=== PATIENT | male | born 1950 | race Caucasian/White ===

== ENCOUNTER 2022-04-04 07:04 | Outpatient (CLI) | payer MEDICARE, SELFPAY ==
[2022-04-04 08:14] LABS: Basophils Absolute Auto 0.05 K/mm3 (0.00-0.10); Basophils Percent Auto 0.6 % (0.0-1.0); Eosinophils Absolute Auto 0.31 K/mm3 (0.02-0.50); Eosinophils Percent Auto 3.5 % (1.0-6.0); Hematocrit 44.1 % (37.0-46.0); Hemoglobin 13.8 g/dL (12.4-15.3); Immature Granulocyte Absolute 0.03 K/mm3 (0.00-0.00); Immature Granulocyte Percent A 0.3 % (0.0-0.0); Lymphocytes Absolute Auto 2.17 K/mm3 (1.10-4.50); Lymphocytes Percent Auto 24.7 % (18.0-42.0); Mean Corpuscular HGB Conc 31.3 g/dL (32.0-36.0); Mean Corpuscular Hemoglobin 28.8 pg (27.0-31.0); Mean Corpuscular Volume 91.9 fL (78.0-102.0); Mean Platelet Volume 9.8 fl (8.7-11.0); Monocytes Absolute Auto 0.68 K/mm3 (0.10-0.90); Monocytes Percent Auto 7.7 % (2.0-11.0); Neutrophils Absolute Auto 5.6 K/mm3 (1.7-7.2); Neutrophils Percent Auto 63.2 % (50.0-70.0); Platelet Count Result 284 K/mm3 (150-420); White Blood Count 8.8 K/mm3 (4.8-10.8)
[2022-04-04 08:20] LABS: Hemoglobin A1C 9.7 % (<5.7)
[2022-04-04 08:24] LABS: Add Urine Microscopic? YES; Appearance Urine Clear (Clear); Bilirubin Urine Negative (Negative); Blood Urine Negative (Negative); Color Urine Light Yellow (Yellow); Glucose Urine UA 2+ (Negative); Ketones Urine Negative (Negative); Leukocyte Esterase Ur Negative (Negative); Nitrate Urine Negative (Negative); Protein Urine Negative (Negative); Urobilinogen Urine 0.2 mg/dL (0.2-1.0); pH Urine 5.5 (5.0-8.0)
[2022-04-04 08:28] LABS: RBC Urine None seen /hpf (0-2); WBC Urine None seen /hpf (0-3)
[2022-04-04 08:29] LABS: Bacteria Urine None seen /hpf
[2022-04-04 08:33] LABS: Creatinine Urine 55.31 mg/dL (40-278); MALB Creatinine Ratio 65.4 mg/g (0-30); Microalbumin Urine Random 36.2 mg/L
[2022-04-04 08:52] LABS: Alanine Aminotransferase 22 U/L (16-63); Albumin Level 3.6 g/dL (3.4-5.0); Alkaline Phosphatase 69 U/L (46-116); Anion Gap 9 mmol/L (8-16); Aspartate Amino Transferase 13 U/L (15-37); Bilirubin,Total 0.4 mg/dL (0.00-1.00); Blood Urea Nitrogen 23 mg/dL (7-18); Calcium 9.6 mg/dL (8.5-10.1); Carbon Dioxide 27 mmol/L (21-32); Chloride 101 mmol/L (98-108); Cholesterol 170 mg/dL (0-200); Estimated Glomerular Filt Rate 59; Glucose 210 mg/dL (70-99); HDL Direct 42 mg/dL (40-60); LDL Cholesterol Calculated 97 mg/dL (<130); NT Pro B Type Natriuretic Pept 115 pg/mL (0-125); Osmolality Calculated 293 mOsm/kg (285-295); Potassium 4.9 mmol/L (3.5-5.1); Sodium 137 mmol/L (136-145); Thyroid Stimulating Hormone 4.71 uIU/mL (0.36-3.74); Total Protein 7.9 g/dL (6.4-8.2); Triglycerides 154 mg/dL (0-150)
== END 2022-04-04 07:05 | disposition home or self-care (01) ==
LOC: CHSLAB 07:07
PROVIDERS: PCP Internal Medicine; Visit Provider Internal Medicine
DX: I10 Essential (primary) hypertension (principal); M79.89 Other specified soft tissue disorders; E11.9 Type 2 diabetes mellitus without complications; I50.9 Heart failure, unspecified
CPT/HCPCS: 36415; 80053; 80061; 81001; 82043; 83036; 83880; 84443; 85025

== ENCOUNTER 2022-05-30 22:29 | Emergency (ER) | payer MEDICARE, SELFPAY ==
[2022-05-30] VITALS (11 sets, daily range): BP systolic 143–166; BP diastolic 75–107; PULSE 85–99; RESP 18–20; TEMP 36.9; O2SAT 94–100
--- NOTE | ~2022-05-30 | XR_ITS ---
EXAMINATION: XR chest 1V portable INDICATION: Chest pain shortness of breath TECHNIQUE: Portable AP chest at 1121 hours COMPARISON: None available FINDINGS: Cardiomegaly is noted. There is a mild diffuse interstitial pattern. Small pleural effusion s are suggested. There is no pneumothorax. 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 IMPRESSION: 1. Cardiomegaly with probable mild pulmonary edema. 2. Small pleural effusions. Reviewed, dictated and finalized at location L.
--- NOTE | 2022-05-30 22:39 | ECG_ITS ---
Measurements Intervals [place] Rate: 97 P: 42 GA: 198 QRS: -51 QRSD: 104 T: 60 QT: 349 QTc: 445 Interpretive Statements SINUS RHYTHM PATTERN CONSISTENT WITH PULMONARY DISEASE LEFT ANTERIOR FASCICULAR BLOCK [QRS AXIS <= -45, QR IN I, RS IN II] ABNORMAL ECG NO PREVIOUS ECG AVAILABLE FOR COMPARISON Electronically Signed On 06-01-2022 13:57:04 CDT by Sebastian Ramires M.D.
[2022-05-30 23:11] LABS: Basophils Absolute Auto 0.05 K/mm3 (0.00-0.10); Basophils Percent Auto 0.5 % (0.0-1.0); Eosinophils Absolute Auto 0.27 K/mm3 (0.02-0.50); Eosinophils Percent Auto 2.8 % (1.0-6.0); Immature Granulocyte Absolute 0.03 K/mm3 (0.00-0.00); Immature Granulocyte Percent A 0.3 % (0.0-0.0); Lymphocytes Percent Auto 21.9 % (18.0-42.0); Mean Corpuscular HGB Conc 33.3 g/dL (32.0-36.0); Mean Corpuscular Hemoglobin 29.9 pg (27.0-31.0); Mean Corpuscular Volume 89.7 fL (78.0-102.0); Mean Platelet Volume 9.1 fl (8.7-11.0); Monocytes Absolute Auto 0.77 K/mm3 (0.10-0.90); Neutrophils Absolute Auto 6.4 K/mm3 (1.7-7.2); Neutrophils Percent Auto 66.5 % (50.0-70.0); Platelet Count Result 197 K/mm3 (150-420); Red Blood Count 4.35 M/mm3 (4.70-6.10); Red Cell Distribution Width 14.5 % (11.6-14.4); White Blood Count 9.6 K/mm3 (4.8-10.8)
[2022-05-30 23:24] LABS: Prothrombin Time 11.3 Seconds (9.50-12.10)
[2022-05-30 23:33] LABS: Alanine Aminotransferase 19 U/L (16-63); Albumin Level 3.3 g/dL (3.4-5.0); Alkaline Phosphatase 72 U/L (46-116); Anion Gap 8 mmol/L (8-16); Aspartate Amino Transferase 12 U/L (15-37); Bilirubin,Total 0.6 mg/dL (0.00-1.00); Blood Urea Nitrogen 16 mg/dL (7-18); Calcium 8.8 mg/dL (8.5-10.1); Carbon Dioxide 30 mmol/L (21-32); Chloride 102 mmol/L (98-108); Estimated CRCL calculation 77 ml/min; Estimated Glomerular Filt Rate > 60; Glucose 231 mg/dL (70-99); NT Pro B Type Natriuretic Pept 80 pg/mL (0-125); Osmolality Calculated 298 mOsm/kg (285-295); Potassium 3.8 mmol/L (3.5-5.1); Sodium 140 mmol/L (136-145); Total Protein 7.4 g/dL (6.4-8.2); Troponin I 9.1 ng/L (0.00-60.4)
--- NOTE | 2022-05-30 23:57 | ED.GENADULT ---
HPI - General Adult General Chief complaint: Shortness of Breath/Dyspnea Stated complaint: SOB History of Present Illness HPI narrative: Augustine is a 72M with a PMH of high blood pressure, HLD, and DMII that presented to the ED after and episode of chest pressure and dyspnea. It started after a disagreement with friends/family about smoking in the home. After this he had mild chest pressure and dyspnea that lasted for 30 minutes. By the time he arrived at the ED he was asymptomatic. There was no lightheadedness/syncope, nausea or vomiting. Related Data Home Medications Medication Instructions Recorded Confirmed amlodipine 10 mg tablet 10 mg PO DAILY 05/30/22 06/07/22 atorvastatin 40 mg tablet 40 mg PO DAILY 05/30/22 06/07/22 glimepiride 4 mg tablet 4 mg PO BID 05/30/22 06/07/22 lisinopril 20 mg tablet 20 mg PO DAILY 05/30/22 06/07/22 metformin 1,000 mg tablet 1,000 mg PO BID 05/30/22 06/07/22 metoprolol tartrate 50 mg tablet 50 mg PO BID 05/30/22 06/07/22 spironolactone 25 mg tablet 25 mg PO DAILY 05/30/22 06/07/22 torsemide 20 mg tablet 40 mg PO DAILY 05/30/22 06/07/22 Allergies Allergy/AdvReac Type Severity Reaction Status Date / Time No Known Allergies Allergy Verified 05/30/22 22:58 Review of Systems Review of Systems: All systems reviewed & are unremarkable except as noted in HPI and below PMFSH Past Medical History Medical History Diabetes mellitus Dyslipidemia Hypertension Leg swelling Nonischemic cardiomyopathy Family History Family History Other Congestive heart failure Diabetes mellitus Social History Social History Social History: nonsmoker Smoking status: Never smoker Second hand tobacco smoke exposure: No Alcohol intake: former Alcohol use details: remote history of alcohol use Substance use: never Substance use type: does not use Lack of Transportation: No Lack of Food: Never True Current Housing: I Have Housing Concerned About Future Housing: No Difficulty Paying Gas/Electric Bills: No Difficulty Paying for Meds: No Currently Unemployed: No Education: Trade/Vocational Certificate Difficulty w/ Childcare or Family Care: No Spiritual care concerns: No Exam Const: General: healthy appearing and no acute distress Nutritional Appearance: well nourished Orientation/consciousness: patient oriented x3 HENMT: Head: normal to inspection Ears: external ears normal Face/Nose/Sinus: Normal external nose present Eyes: Conjunctivae: conjunctivae normal Pupils: Equal, round and reactive pupils present Neck: Neck: normal visual inspection Chest: Chest palpation & inspection: normal inspection of the chest Resp: Effort & Inspection: normal respiratory effort Auscultation: clear to auscultation bilaterally Cardio: Rate: regular rate Rhythm: regular rhythm GI: Inspection: non-distended GI Palp: Yes Soft to palpation and No Tenderness to palpation present (GI) Skin: General skin exam: normal color Rashes: no rashes Neuro: General: patient oriented x3 and moves all extremities Extrem: General: normal to inspection Psych: Mental Status: mental status grossly normal Course Course Emergency Course: Orderd labs and CXR as well ad EKG EKG showed sinus rhythm with a rate of [address] elevation or depression or ectopy Labs showed no leucocytosis or anemia. Troponin and BNP wnl as well as other chemistries CXR: No cause for chest pain Vital Signs Vital signs: Vital Signs Pulse Rate 97 05/30/22 22:30 Pulse Oximetry 95 05/30/22 22:30 Oxygen Delivery Room Air 05/30/22 22:30 Temperature 98.1 F 05/31/22 00:03 Pulse Rate 80 05/31/22 00:03 Respiratory Rate 20 05/31/22 00:03 Blood Pressure 132/76 05/31/22 00:03 Pulse Oximetry 96 05/31/22 0
[2022-05-31 00:03] VITALS: BP 132/76; PULSE 80; RESP 20; TEMP 36.7; O2SAT 96
== END 2022-05-31 00:15 | disposition home or self-care (01) ==
PROVIDERS: Emergency Provider Family Medicine; PCP Internal Medicine
DX: R07.9 Chest pain, unspecified (principal); E11.9 Type 2 diabetes mellitus without complications; E78.5 Hyperlipidemia, unspecified; I10 Essential (primary) hypertension; Z79.84 Long term (current) use of oral hypoglycemic drugs
CPT/HCPCS: 36415; 71045; 80053; 83880; 84484; 85025; 85610; 93005; 99284

== ENCOUNTER 2022-06-07 21:36 | Observation (INO) | payer MEDICARE, MEDICAID, SELFPAY ==
--- NOTE | ~2022-06-07 | XR_ITS ---
EXAMINATION: XR chest 1V portable Exam Date/Time: 06/07/2022 22:28 CDT HISTORY: PRODUCTIVE COUGH WITH FATIGUE TODAY. Comparison: 05/30/2022. RESULT: Lines, tubes, and devices: None. Lungs and pleura: Diffuse reticular opacities. Streaky mid and lower lung opacities. No focal consol idation. Senescent change. Minimal bilateral costophrenic angle blunting. Cardiomediastinal silhouette: Stable. Other: No acute osseous or upper abdominal finding. IMPRESSION: Interstitial pulmonary edema. Bibasilar scar and atelectasis. Possible small bilateral effusions. Reviewed, dictated and finalized at location K. IMPRESSION: Interstitial pulmonary edema. Bibasilar scar and atelectasis. Possible small bi lateral effusions.
[2022-06-07 21:45] VITALS: BP 160/80; PULSE 84; RESP 24; O2SAT 94
--- NOTE | 2022-06-07 21:46 | ED.SOB ---
HPI - SOB/Dyspnea General Chief Complaint: Shortness of Breath/Dyspnea Stated Complaint: amb Time Seen by Provider: 06/07/22 21:43 Source: patient Mode of arrival: wheelchair Limitations: no limitations History of Present Illness HPI Narrative: 72-year-old male ex alcoholic quit many years ago), nonischemic cardiomyopathy with a negative cardiac catheterization 10 years ago, diabetes mellitus, dyslipidemia, hypertension, CHF presents to the ER with -- cough with increased mucoid sputum. -- Chronic shortness of breath without any worsening. patient was noted to be 88% on room air following which he was placed on 1 L of O2. -- Chronic bilateral leg swelling -- chronic gluteal decubitus patient denied any fever or chills no chest pain. no pleuritic pain MD elicited complaint: shortness of breath and cough Pertinent past history: congestive heart failure and diabetes Onset (ago): day(s) Context: occurred during exertion Timing: constant Severity: mild Exacerbating factors: lying flat, exertion and movement Relieving factors: nothing Known history of: congestive heart failure Associated symptoms: cough and sputum production Treatment prior to arrival: oxygen Related Data Home oxygen amount: none Home Medications Medication Instructions Recorded Confirmed amlodipine 10 mg tablet 10 mg PO DAILY 05/30/22 06/07/22 atorvastatin 40 mg tablet 40 mg PO DAILY 05/30/22 06/07/22 glimepiride 4 mg tablet 4 mg PO BID 05/30/22 06/07/22 lisinopril 20 mg tablet 20 mg PO DAILY 05/30/22 06/07/22 metformin 1,000 mg tablet 1,000 mg PO BID 05/30/22 06/07/22 metoprolol tartrate 50 mg tablet 50 mg PO BID 05/30/22 06/07/22 spironolactone 25 mg tablet 25 mg PO DAILY 05/30/22 06/07/22 torsemide 20 mg tablet 40 mg PO DAILY 05/30/22 06/07/22 Allergies Allergy/AdvReac Type Severity Reaction Status Date / Time No Known Allergies Allergy Verified 05/30/22 22:58 Review of Systems Review of Systems: All systems reviewed & are unremarkable except as noted in HPI and below Constitutional: Constitutional: Reports as per HPI and Reports no additional constitutional complaints Eyes: Eyes: Reports as per HPI and Reports no additional eye complaints ENT: Reports system reviewed and no additional complaints, except as documented, Reports as per HPI and Reports nasal congestion Cardiovascular: Cardiovascular: Reports as per HPI and Reports no additional cardiovascular complaints Respiratory: Respiratory: Reports as per HPI, Reports no additional respiratory complaints, Reports chest congestion, Reports cough and Reports dyspnea Gastrointestinal: Gastrointestinal: Reports as per HPI and Reports no additional gastrointestinal complaints Genitourinary: Genitourinary: Reports no additional male genitourinary complaints and Reports as per HPI Musculoskeletal: Musculoskeletal: Reports no additional musculoskeletal complaints and Reports as per HPI Integumentary/Breasts: Skin/Breast: Reports system reviewed and no additional complaints, except as docu and Reports as per HPI Comments: Bilateral gluteal decubitus Neurologic: Reports system reviewed and no additional complaints, except as documented and Reports as per HPI Psychiatric: Psychiatric: Reports no additional psychiatric complaints and Reports as per HPI Endocrine: Endocrine: Reports no additional endocrine complaints and Reports as per HPI Hematologic/Lymphatic: Hematologic/Lymphatic: Reports no additional hematologic/lymphatic complaints and Reports as per HPI Allergic/Immunologic: Allergic/Immunologic: Reports no additional allergic/immunologic complaints and Reports as per HPI FOR[facility]LY [facility], [facility] Past Medical History Medical History (Updated 06/08/22 @ 00:17 by Marquez Terry MD) Diabetes mellitus Dyslipidemia Hypertension Leg swelling Nonischemic cardiomyopathy Social History Social History (Updated 06/07/22 @ 22:27 by Marquez Terry MD) Social History: nonsmoker Alcohol use detail
[2022-06-07 21:49] VITALS: TEMP 36.9
[2022-06-07 21:51] VITALS: O2SAT 88
--- NOTE | 2022-06-07 22:11 | ECG_ITS ---
Measurements Intervals [place] Rate: 79 P: 44 AK: 221 QRS: -36 QRSD: 97 T: 25 QT: 381 QTc: 438 Interpretive Statements SINUS RHYTHM WITH FIRST DEGREE AV BLOCK BASELINE ARTIFACT LEFT AXIS DEVIATION PATTERN CONSISTENT WITH PULMONARY DISEASE BORDERLINE ECG COMPARED TO ECG 05/30/2022 22:47:38 FIRST DEGREE AV BLOCK NOW PRESENT LEFT-AXIS DEVIATION NOW PRESENT Electronically Signed On 06-08-2022 18:19:38 CDT by Efrain Yost M.D.
[2022-06-07 22:27] LABS: Basophils Absolute Auto 0.03 K/mm3 (0.00-0.10); Basophils Percent Auto 0.5 % (0.0-1.0); Eosinophils Absolute Auto 0.24 K/mm3 (0.02-0.50); Eosinophils Percent Auto 3.6 % (1.0-6.0); Hematocrit 40.5 % (37.0-46.0); Hemoglobin 13.2 g/dL (12.4-15.3); Immature Granulocyte Absolute 0.02 K/mm3 (0.00-0.00); Immature Granulocyte Percent A 0.3 % (0.0-0.0); Lymphocytes Absolute Auto 1.73 K/mm3 (1.10-4.50); Lymphocytes Percent Auto 26.2 % (18.0-42.0); Mean Corpuscular HGB Conc 32.6 g/dL (32.0-36.0); Mean Corpuscular Hemoglobin 29.7 pg (27.0-31.0); Mean Platelet Volume 9.1 fl (8.7-11.0); Monocytes Absolute Auto 0.77 K/mm3 (0.10-0.90); Monocytes Percent Auto 11.7 % (2.0-11.0); Neutrophils Absolute Auto 3.8 K/mm3 (1.7-7.2); Neutrophils Percent Auto 57.7 % (50.0-70.0); Platelet Count Result 225 K/mm3 (150-420); Red Blood Count 4.45 M/mm3 (4.70-6.10); Red Cell Distribution Width 14.6 % (11.6-14.4); White Blood Count 6.6 K/mm3 (4.8-10.8)
[2022-06-07 22:36] VITALS: BP 140/80; PULSE 82; PULSE 84; RESP 20; O2SAT 93
[2022-06-07 22:40] VITALS: O2SAT 92
[2022-06-07 22:46] LABS: Lactic Acid Reflex 2.2 mmol/L (0.4-2.0)
[2022-06-07 22:50] LABS: Alanine Aminotransferase 23 U/L (16-63); Albumin Level 3.3 g/dL (3.4-5.0); Alkaline Phosphatase 65 U/L (46-116); Anion Gap 11 mmol/L (8-16); Aspartate Amino Transferase 17 U/L (15-37); Bilirubin,Total 0.4 mg/dL (0.00-1.00); Blood Urea Nitrogen 30 mg/dL (7-18); Calcium 8.6 mg/dL (8.5-10.1); Carbon Dioxide 29 mmol/L (21-32); Chloride 100 mmol/L (98-108); Estimated CRCL calculation 50 ml/min; Estimated Glomerular Filt Rate 51; Glucose 212 mg/dL (70-99); NT Pro B Type Natriuretic Pept 31 pg/mL (0-125); Osmolality Calculated 302 mOsm/kg (285-295); Potassium 3.8 mmol/L (3.5-5.1); Sodium 140 mmol/L (136-145); Total Protein 7.5 g/dL (6.4-8.2); Troponin I 8.2 ng/L (0.00-60.4)
--- NOTE | 2022-06-07 23:00 | PC.NURSE ---
patient report received from TIMUR Baca.
[2022-06-07 23:05] LABS: Influenza A QL RT-PCR Negative (Negative); Influenza B QL RT-PCR Negative (Negative); RSV RNA, RT-PCR Negative (Negative); SARS-CoV-2 RNA PCR Negative (Negative)
[2022-06-08] VITALS (10 sets, daily range): BP systolic 111–118; BP diastolic 57–64; PULSE 79–80; RESP 16–18; TEMP 36.2–37.1; O2SAT 91–99; BMI 39.2
--- NOTE | 2022-06-08 00:30 | PC.NURSE ---
Dr. Terry called and said he wanted pt to have Jardiance 10 mg PO tonight and again in the AM; He also ordered low dose sliding scale insulin. orders received and noted.
[2022-06-08 01:25] LABS: Reflex Lactic Acid Yes or No Add Lactic
[2022-06-08] MEDS: EMPAGLIFLOZIN 10 MG TABLET PO ×2 (01:26→08:43)
--- NOTE | 2022-06-08 01:31 | ADMGEN ---
This patient, Augustine Erickson, was admitted to 2nd Floor Room 208-1. Patient oriented to hospital policies and general routines including ID bracelet, bed and alarms, visiting hours, pain management, procedures, bathroom and other care routines, personal items, smoking policy, room service/diet, and visiting hours. Information on how to activate the Rapid Response Team has been discussed. Patient are encouraged to report perceived risks to care and to ask questions if they do not understand what they are told or what they should do.
[2022-06-08 01:58] LABS: Lactic Acid 2.5 mmol/L (0.4-2.0)
[2022-06-08 07:58] LABS: Glucose Point of Care 186 mg/dl (65-105)
[2022-06-08 08:42] LABS: Hemoglobin 13.8 g/dL (12.4-15.3); Mean Corpuscular HGB Conc 32.1 g/dL (32.0-36.0); Mean Corpuscular Hemoglobin 29.3 pg (27.0-31.0); Mean Corpuscular Volume 91.3 fL (78.0-102.0); Mean Platelet Volume 8.7 fl (8.7-11.0); Platelet Count Result 228 K/mm3 (150-420); Red Blood Count 4.71 M/mm3 (4.70-6.10); Red Cell Distribution Width 14.6 % (11.6-14.4)
[2022-06-08] MEDS: SPIRONOLACTONE 25 MG TABLET PO (08:43)
[2022-06-08] MEDS: GLIMEPIRIDE 2 MG TABLET PO ×2 (08:43→16:55)
[2022-06-08] MEDS: amLODIPine BESYLATE 5 MG TABLET 10 MG PO (08:43)
[2022-06-08] MEDS: lisinopriL 20 MG TABLET PO (08:43)
[2022-06-08] MEDS: METOPROLOL TARTRATE 50 MG TAB PO ×2 (08:44→16:55)
[2022-06-08] MEDS: HEPARIN SODIUM 5,000 UNITS/ML VIAL 5000 UNITS SUB-Q ×2 (08:44→20:49)
[2022-06-08] MEDS: ATORVASTATIN 40 MG TABLET PO (08:44)
[2022-06-08 09:05] LABS: Anion Gap 8 mmol/L (8-16); Blood Urea Nitrogen 28 mg/dL (7-18); Calcium 8.9 mg/dL (8.5-10.1); Carbon Dioxide 31 mmol/L (21-32); Chloride 99 mmol/L (98-108); Estimated CRCL calculation 61 ml/min; Estimated Glomerular Filt Rate 56; Glucose 231 mg/dL (70-99); NT Pro B Type Natriuretic Pept 32 pg/mL (0-125); Osmolality Calculated 298 mOsm/kg (285-295); Potassium 4.1 mmol/L (3.5-5.1); Sodium 138 mmol/L (136-145)
[2022-06-08] MEDS: LORATADINE 10 MG TABLET PO (11:32)
--- NOTE | 2022-06-08 11:35 | PM.IMHP ---
H&P: HPI History of Present Illness Date/Time: 06/08/22 11:35 Chief Complaint: shortness of breath Narrative: This is a 72 year old male that was having shortness of breath according to patient he states that he was not feeling well and had copus mucous noted in his lungs and he felt like he could not breath. This is a man that has multiple wounds on his feet, buttocks, back , arms and legs. Patient lives at home with his with a PMH of Diabetes, COPD, Chronic renal failure , Chronic wounds , hypertension, Cardiomyopathy, AL, Obesity PVD, HLD,. Last night patient was requiring oxygen at 2l/NC he was found to have some acute on chronic renal failure, swollen legs, Hypertension and some weakness. Patient has since been weaned off of his oxygen but still has multiple wounds noted being treated. We will continue to keep patient one more day to monitor his Respiratory status and plan for discharge with home health in the morning. Review of Systems Review of Systems: sore on body, shortness of breath resolved, CHF stable, COPD stable All systems reviewed & are unremarkable except as noted in HPI and below PMFSH Past Medical History Medical History Diabetes mellitus Dyslipidemia Hypertension Leg swelling Nonischemic cardiomyopathy Family History Family History Other Congestive heart failure Diabetes mellitus Social History Social History Social History: nonsmoker Smoking status: Never smoker Second hand tobacco smoke exposure: No Alcohol intake: former Alcohol use details: remote history of alcohol use Substance use: never Substance use type: does not use Lack of Transportation: No Lack of Food: Never True Current Housing: I Have Housing Concerned About Future Housing: No Difficulty Paying Gas/Electric Bills: No Difficulty Paying for Meds: No Currently Unemployed: No Education: Trade/Vocational Certificate Difficulty w/ Childcare or Family Care: No Spiritual care concerns: No Meds Home Medications and Allergies Home Medications Medication Instructions Recorded Confirmed Type amlodipine 10 mg tablet 10 mg PO DAILY 05/30/22 06/07/22 History atorvastatin 40 mg tablet 40 mg PO DAILY 05/30/22 06/07/22 History glimepiride 4 mg tablet 4 mg PO BID 05/30/22 06/07/22 History lisinopril 20 mg tablet 20 mg PO DAILY 05/30/22 06/07/22 History metformin 1,000 mg tablet 1,000 mg PO BID 05/30/22 06/07/22 History metoprolol tartrate 50 mg tablet 50 mg PO BID 05/30/22 06/07/22 History spironolactone 25 mg tablet 25 mg PO DAILY 05/30/22 06/07/22 History torsemide 20 mg tablet 40 mg PO DAILY 05/30/22 06/07/22 History benzonatate 100 mg capsule 100 mg PO TID PRN Cold Symptoms 06/09/22 Rx #20 caps empagliflozin 10 mg tablet 10 mg PO DAILY #30 tabs 06/09/22 Rx (Jardiance) hydrocortisone 1 % topical cream 1 applic topical Q12HR #28 grams 06/09/22 Rx tolnaftate 1 % topical powder 1 applic topical Q12HR #28 grams 06/09/22 Rx Allergies Allergy/AdvReac Type Severity Reaction Status Date / Time No Known Allergies Allergy Verified 05/30/22 22:58 Vital Signs Vital Signs - 24 hr 06/07/22 21:45 06/07/22 21:49 06/07/22 21:51 Temperature 98.5 F Pulse Rate 84 Respiratory Rate 24 H Blood Pressure 160/80 H Pulse Oximetry 94 88 L Oxygen Delivery Nasal Cannula Room Air Oxygen Flow Rate 1.5 06/07/22 22:36 06/07/22 22:36 06/07/22 22:40 Temperature Pulse Rate 82 84 Respiratory Rate 20 Blood Pressure 140/80 Pulse Oximetry 93 92 Oxygen Delivery Room Air Room Air Oxygen Flow Rate 06/08/22 00:25 06/08/22 00:20 06/08/22 06:00 Temperature 98.8 F 97.1 F L Pulse Rate 80 79 79 Respiratory Rate 18 18 18 Blood Pressure 118/64 117/60 Pulse Oximetry 94 91 Oxygen Delivery Room Air Room Air N
[2022-06-08] MEDS: HYDROCORTISONE 1% 30 GM CREAM 1 APPLIC TOPICAL ×2 (11:37→20:51)
[2022-06-08 11:38] LABS: Glucose Point of Care 197 mg/dl (65-105)
--- NOTE | 2022-06-08 11:42 | PC.NURSE ---
Hydrocortisone cream applied to bottom of both feet
[2022-06-08 17:00] LABS: Glucose Point of Care 119 mg/dl (65-105)
[2022-06-08] MEDS: BENZONATATE 100 MG CAPSULE PO (18:28)
[2022-06-08] MEDS: TOLNAFTATE 1% POWDER 45 GM BTL 1 APPLIC TOPICAL (20:56)
[2022-06-09] VITALS (7 sets, daily range): BP systolic 130–162; BP diastolic 75–78; PULSE 75–112; RESP 17–18; TEMP 36.2–36.5; O2SAT 87–97
[2022-06-09 08:09] LABS: Glucose Point of Care 178 mg/dl (65-105)
--- NOTE | 2022-06-09 09:00 | HOMEO2EVAL ---
Evaluation was performed at [facility] Home Oxygen Evaluation RC: Home Oxygen (O2) Evaluation Start: 06/09/22 08:28 Freq: ONCE Status: Active Protocol: RPE Activity Type Activity Date Activity User E-sign Co-sign Detail Recorded Client Recorded Date Recorded By Document 06/09/22 08:45 [email or web address] 06/09/22 09:00 SJB Document 06/09/22 08:48 [email or web address] 06/09/22 09:00 SJB Document 06/09/22 08:51 [email or web address] [email or web address] 06/09/22 09:00 SJB 06/09/22 06/09/22 06/09/22 08:45 08:48 08:51 Home O2 Evaluation [Oxygen] -Test Phase Resting Exercise Exercise -Oxygen Delivery Room Air Room Air Nasal Cannula -Oxygen Flow Rate (L/min) 1 [Pulse Oximetry] -Pulse Oximetry (90-100 %) 94 87 L 92 [Pulse Rate] -Pulse Rate (60-100 beats/min) 90 112 H 106 H [Evaluation] -Activity Tolerance Good Good -Rating of Perceived Dyspnea (PD) +1 Mild, +1 Mild, Noticeable to Noticeable to the Participant the Participant but Not to an but Not to an Observer Observer -Rate of Perceived Exertion (PE) 11 Fairly light 12 Query Text:Click the Protocol Button to View the RPE Scale [Exercise] -Ambulation Distance (feet) 150 150 -Ambulation Distance (meters) 45.71 45.71 [Comments] -Home Oxygen Evaluation Comments Will begin walk After 150 ft After a total on room air. patient's Sp02 of 300 ft, dropped to 87%. patient Started on 1 finished walk lpm, Sp02 came on 1 lpm 02 up to 94%. with Sp02 Will continue staying at 92% walk on 1 lpm. and above. PLB much encouraged. [Charges] -Treatment Charges O2 Evaluation - Outpatient
[2022-06-09] MEDS: TOLNAFTATE 1% POWDER 45 GM BTL 1 APPLIC TOPICAL (09:04)
[2022-06-09] MEDS: HYDROCORTISONE 1% 30 GM CREAM 1 APPLIC TOPICAL (09:04)
[2022-06-09] MEDS: lisinopriL 20 MG TABLET PO (09:05)
[2022-06-09] MEDS: SPIRONOLACTONE 25 MG TABLET PO (09:05)
[2022-06-09] MEDS: EMPAGLIFLOZIN 10 MG TABLET PO (09:05)
[2022-06-09] MEDS: HEPARIN SODIUM 5,000 UNITS/ML VIAL 5000 UNITS SUB-Q (09:05)
[2022-06-09] MEDS: amLODIPine BESYLATE 5 MG TABLET 10 MG PO (09:05)
[2022-06-09] MEDS: LORATADINE 10 MG TABLET PO (09:05)
[2022-06-09] MEDS: METOPROLOL TARTRATE 50 MG TAB PO (09:05)
[2022-06-09] MEDS: GLIMEPIRIDE 2 MG TABLET PO (09:06)
[2022-06-09] MEDS: ATORVASTATIN 40 MG TABLET PO (09:06)
--- NOTE | 2022-06-09 10:33 | PM.DS ---
DS: Admitting Diagnosis Discharge Date 06/09/2022 Admitting Diagnosis COPD Exacerbation, Hyponatremia, Hypertension, Hypoxia DS: Discharge Diagnosis Discharge Diagnosis Plan COPD, Multiple wounds, CHF, DS: Summary Hospital Course Reason for hospitalization: hypoxia, COPD, hypertension Hospital Course: this is a 72-year-old woman with some hypoxia COPD exacerbation patient was seen as he has been having some weakness family requiring some oxygen. Patient was admitted to the floor where he stays some IV antibiotics his oxygen for a little while this email physical therapy when she only qualified for physical therapy as outpatient for considering long-term placement although his shins when not cover the family wanted to take him home patient mild physical therapy in the home. Home health will be set up for dressing changes we will continue to monitor patient's labs have improved potassium was 4.1, sodium 138, BUN 28, creatinine 1.25, RBCs 4.7, the BC 7.0 hemoglobin 13.8 hemcrit 43. Patient will have home health come out on Monday where they will also have PT/OT come out to the house. Patient is strong at this time and able to use his walker and assist with walking. Time Spent with Patient Time attestation: Total time spent providing and/or coordinating discharge services: Exam Narrative: GENERAL:Well-appearing, well-nourished, and in no acute distress. HEAD:Normocephalic, atraumatic. EYES: PERRLA and EOMI. ENT: Nares clear, no rhinorrhea or epistaxis. Mucous membranes moist. CHEST: Clear to scattered sporadic wheezes auscultation. No respiratory distress. HEART: Regular rate and rhythm. No murmur heard. Normal peripheral pulses. ABDOMEN: Soft, nontender, nondistended, normal active bowel sounds. EXTREMITIES: Normal range of motion. trace edema. SKIN: Warm, dry, no rash. NEURO: No focal deficits. Alert and oriented x3. DS: Data Data Completed and Pending Labs on day of discharge: Labs from last 24 hours 06/09/22 06/08/22 06/08/22 08:02 16:53 11:33 POC Capillary Glucose 178 H 119 H 197 H Discharge Plan Discharge Attending physician on discharge: Rene Posadas Consulting providers: Ayden Valadez ; Efrain Yost ; Edinson Carrero Discharging Clinician: Ayden Valadez Anticipated Discharge Date/Time: 06/09/22 09:03 Patient Disposition: Home Health Service Activity: june shower Diet: heart healthy Wound Care Instructions: keep dressing dry Discharge Instructions: [facility] will see you Monday06/13/2022 to help you with wound care. RN to call [phone] when pt discharges. home oxygen @ 1liter [facility] in [place] they will call you with a appointment. You are aware you need a CPAP although you sent back as you have stated that you personally feel you don't need. Patient Instructions: Antibiotic Form, Benzonatate (By mouth), Empagliflozin (By mouth), Heart Failure (DC), How to Prevent Pressure Injuries (DC), Fall Prevention for Older Adults (DC), Using Oxygen at Home (DC), How Your Lungs Work (DC), Energy Conservation Techniques (DC), Nutrition Guidelines for People with COPD (DC), Chronic Wounds (DC), Acute Wounds (DC) Stand Alone Forms: General Discharge Information Follow-up/Referrals: Tigre Qureshi MD [Primary Care Provider] - 06/17/22 8:45 am Discharge Medications: New benzonatate 100 mg Capsule 100 mg PO TID PRN (Reason: Cold Symptoms) Qty: 20 0RF Jardiance 10 mg Tablet 10 mg PO DAILY Qty: 30 0RF hydrocortisone 1 % Cream 1 applic topical Q12HR Qty: 28 0RF tolnaftate 1 % Powder 1 applic topical Q12HR Qty: 28 0RF Continued atorvastatin 40 mg tablet 40 mg PO DAILY torsemide 20 mg tablet 40 mg PO DAILY lisinopril 20 mg tablet 20 mg PO DAILY spironolactone 25 mg tablet 25 mg PO DAILY amlodipine 10 mg tablet 10 mg PO DAILY metformin 1,000 mg tablet 1,000 mg
--- NOTE | 2022-06-09 12:05 | PC.NURSE ---
Discharge instructions reviewed with patient. All questions answered. Pt transported via wheelchair to front of hospital and assisted into private vehicle.
--- NOTE | 2022-06-13 10:31 | PC.NURSE ---
Pt states he received and understood the discharge instructions. Pt also states I was very satisfied with my care .
[2022-06-22 13:03] LABS: Glucose Point of Care 166 mg/dl (65-105)
== END 2022-06-09 12:05 | disposition home health service (06) ==
LOC: CHSED 06-08 00:12 → CHS2ND 06-08 00:30
PROVIDERS: Nurse Practitioner Family; Admitting Provider Internal Medicine; Emergency Provider Internal Medicine Critical Care Medicine; PCP Internal Medicine; Visit Provider Internal Medicine
DX: J44.1 Chronic obstructive pulmonary disease with (acute) exacerbation (principal); I13.0 Hypertensive heart and chronic kidney disease with heart failure and stage 1 through stage 4 chronic kidney disease, or unspecified chronic kidney disease; I50.9 Heart failure, unspecified; I42.8 Other cardiomyopathies; N18.30 Chronic kidney disease, stage 3 unspecified; E11.22 Type 2 diabetes mellitus with diabetic chronic kidney disease; E78.5 Hyperlipidemia, unspecified; L89.329 Pressure ulcer of left buttock, unspecified stage; L89.319 Pressure ulcer of right buttock, unspecified stage; Z20.822 Contact with and (suspected) exposure to COVID-19
CPT/HCPCS: 36415; 71045; 80048; 80053; 82948; 83605; 83880; 84484; 85025; 85027; 85380; 87637; 93005; 94618; 96372; 99285; A9270; G0378; J1644

== ENCOUNTER 2022-06-20 07:41 | Outpatient (CLI) | payer MEDICARE, MEDICAID, SELFPAY ==
--- NOTE | ~2022-06-20 | CT_ITS ---
EXAMINATION: CT diagnostic chest wo con DATE: 06/20/2022 08:06 INDICATION: Interstitial lung disease TECHNIQUE: Computed tomography (CT) of the chest was performed without intravenous contrast. The dose -length product (DLP) was 509.51 mGy-cm. Automated exposure control and iterative reconstruction tech nique were employed. COMPARISON: None FINDINGS: There are subpleural reticular and groundglass opacities with a mid and lower lung zone pre dominance. No honeycombing is identified. No pleural effusion or pneumothorax. No pathologically enla rged thoracic lymph nodes are identified. The heart size is normal. Calcified right hilar and mediast inal lymph nodes are consistent with old granulomatous disease. There is coronary artery atherosclero sis. There are bridging osteophytes at multiple levels in the spine, consistent with diffuse idiopath ic skeletal hyperostosis (DISH). There is an old healed fracture of the right scapula. Also noted are old healed, displaced fractures of the right clavicle and right first rib. IMPRESSION: 1. Chronic interstitial lung disease in a pattern of nonspecific interstitial pneumonia (NSIP). Reviewed, dictated and finalized at location B. IMPRESSION: 1. Chronic interstitial lung disease in a pattern of nonspecific interstitial p neumonia (NSIP).
== END 2022-06-20 07:42 | disposition home or self-care (01) ==
LOC: CHSIMG 07:43
PROVIDERS: PCP Internal Medicine; Visit Provider Internal Medicine
DX: J84.9 Interstitial pulmonary disease, unspecified (principal); J44.9 Chronic obstructive pulmonary disease, unspecified
CPT/HCPCS: 71250

== ENCOUNTER 2022-06-27 08:00 | Outpatient (CLI) | payer MEDICARE, MEDICAID, SELFPAY ==
--- NOTE | 2022-06-27 08:57 | EST_ITS ---
Patient Info Name: Augustine Erickson Age: 72 years : 1950 Gender: Male Ht: 70 in Wt: 270 lbs BSA: 2.51 m2 HR: 67 bpm BP: 136 / 70 mmHg Technical Quality: Good Exam Date: 06/27/2022 9:35 AM Exam Location: [facility] Patient Status: Outpatient Admit Date: 06/27/2022 Staff Ordering Physician: Tigre Qureshi MD Attending Provider: Tigre Qureshi MD Exam Type: CA stress kristofer w NM Study Info A regadenoson stress test was performed. History/Risk Factors Hypertension: Yes Diabetic Therapy: Insulin Diabetes Mellitus: Type II Summary 1. 1. Negative lexiscan stress test for ischemic ST changes by ECG criteria. 2. 2. Stable hemodynamics throughout the test. 3. 3. Nuclear scan to follow and will be reported separately. Please correlate with it. Protocol: LEXISCAN Stress ECG Details Stage: REST Duration (min): 0 min : 54 sec HR (bpm): 67 SBP (mmHg): 136 DBP (mmHg): 70 Stage: REST Duration (min): 11 min : 15 sec HR (bpm): 70 SBP (mmHg): 147 DBP (mmHg): 75 Stage: STAGE 1 Duration (min): 0 min : 27 sec HR (bpm): 67 SBP (mmHg): 147 DBP (mmHg): 75 Stage: RECOVERY Duration (min): 0 min : 33 sec HR (bpm): 75 SBP (mmHg): 147 DBP (mmHg): 75 Stage: RECOVERY Duration (min): 1 min : 33 sec HR (bpm): 80 SBP (mmHg): 147 DBP (mmHg): 75 Stage: RECOVERY Duration (min): 2 min : 33 sec HR (bpm): 77 SBP (mmHg): 117 DBP (mmHg): 69 Stage: RECOVERY Duration (min): 3 min : 33 sec HR (bpm): 78 SBP (mmHg): 126 DBP (mmHg): 65 Stage: RECOVERY Duration (min): 4 min : 33 sec HR (bpm): 75 SBP (mmHg): 127 DBP (mmHg): 66 Stage: RECOVERY Duration (min): 5 min : 33 sec HR (bpm): 75 SBP (mmHg): 127 DBP (mmHg): 63 Stage: RECOVERY Duration (min): 6 min : 14 sec HR (bpm): 75 SBP (mmHg): 132 DBP (mmHg): 64 Rest HR: 70 bpm Peak HR: 80 bpm Rest Sys BP: 147 mmHg Peak Sys BP: 132 mmHg Max Pred HR: 146 bpm % Max Pred HR: 55 % Target HR: 124 bpm Max RPP: 10,560 bpm*mmHg Termination Reason: Completed Protocol Cardiac Symptoms: None Total Time: 0 min : 27 sec Rest Monzon BP: 75 mmHg Peak Monzon BP: 64 mmHg Total Dose: 0.4 mg Resting ECG Sinus rhythm with 1st degree AV block, PRWP, borderline T wave in anterolateral leads. Stress ECG No abnormal ST/T wave changes. Arrhythmias No arrhythmias were observed during the examination. Report Signatures
--- NOTE | 2022-06-27 13:57 | WPDCARIOSTRE ---
Nuclear Stress Test INDICATIONS Indications: Chest pain PROCEDURE Procedure Performed: Myocardial Perf Spect-Multi Procedure: Patient underwent a lexiscan stress test and immediately was injected with 31.1 mCi of cardiolyte. Multiple tomographic images were obtained. These are of good quality. There is a large, severe apical perfusion defect and a moderate size, moderate severity lateral and inferior perfusion defects during stress imaging. A separate resting images were obtained after patient was injected with 11.0 mCi of cardiolyte. Multiple tomographic images were obtained. These are of good quality. There is a large, severe apical perfusion defect and a moderate size, moderate severity lateral and inferior perfusion defects during rest imaging. CONCLUSION Conclusion: 1. Myocardial perfusion imaging demonstrating fixed large apical and fixed moderate lateral and inferior perfusion defects suggestive of attenuation defects. 2. No evidence of reversible ischemia. 3. Left ventriculolgram demonstrates normal measured ejection fraction of 69% with no wall motion abnormalities. 4. TID score 0.99 is normal.
== END 2022-06-27 08:01 | disposition home or self-care (01) ==
LOC: CHSCARD 08:02
PROVIDERS: PCP Internal Medicine; Visit Provider Internal Medicine
DX: J84.9 Interstitial pulmonary disease, unspecified (principal); J44.9 Chronic obstructive pulmonary disease, unspecified; R07.9 Chest pain, unspecified
CPT/HCPCS: 78452; 93017; A9502; J2785

== ENCOUNTER 2022-07-05 11:17 | Outpatient (CLI) | payer MEDICARE, MEDICAID, SELFPAY | END 2022-07-05 11:18 | disposition home or self-care (01) | LOC: CHSCARD 11:18 | PROVIDERS: PCP Internal Medicine; Visit Provider Internal Medicine | DX: J84.9 Interstitial pulmonary disease, unspecified (principal); J44.9 Chronic obstructive pulmonary disease, unspecified | CPT/HCPCS: 94060; 94726; 94729 ==

== ENCOUNTER 2022-09-27 07:17 | Outpatient (CLI) | payer MEDICARE, MEDICAID, SELFPAY ==
--- NOTE | ~2022-09-27 | CT_ITS ---
EXAMINATION: CT soft tissue neck w con DATE: 09/27/2022 08:04 INDICATION: Tonsillar enlargement. TECHNIQUE: Computed tomography (CT) of the neck was performed with 75 mL Omnipaque-350 intravenous co ntrast. Automated exposure control and iterative reconstruction technique were employed. The dose-mary gth product was 566.11 mGy-cm. COMPARISON: Chest CT 06/20/2022 FINDINGS: The visualized portions of the lung apices demonstrate septal thickening, architectural dis tortion, and groundglass opacities, consistent with chronic interstitial lung disease. Calcified medi astinal lymph nodes are consistent with old granulomatous disease. There is plaque in the proximal in ternal carotid arteries with less than 50% stenosis relative to normal distal artery lumen diameters. There are no pathologically enlarged lymph nodes. There are calcifications in the palatine tonsils, which are normal in size. The adenoids and lingual tonsils are normal. There is severe cervical spond ylosis. There are likely changes of ocular lens replacement surgeries. IMPRESSION: 1. Normal size of the adenoids, palatine tonsils, and lingual tonsils. Reviewed, dictated and finalized at location A.
[2022-09-27 07:45] LABS: Estimated Glomerular Filt Rate 57
== END 2022-09-27 07:18 | disposition home or self-care (01) ==
LOC: CHSIMG 07:19
PROVIDERS: PCP Family Medicine; Visit Provider Physician Assistant
DX: J35.1 Hypertrophy of tonsils (principal)
CPT/HCPCS: 70491; Q9967

== ENCOUNTER 2022-12-08 07:47 | Outpatient (CLI) | payer MEDICARE, MEDICAID, SELFPAY ==
[2022-12-08 08:22] LABS: Creatinine Urine 80.99 mg/dL (40-278); MALB Creatinine Ratio 44.6 mg/g (0-30); Microalbumin Urine Random 36.2 mg/L
[2022-12-08 08:53] LABS: Alanine Aminotransferase 20 U/L (16-63); Albumin Level 3.7 g/dL (3.4-5.0); Alkaline Phosphatase 72 U/L (46-116); Anion Gap 12 mmol/L (8-16); Aspartate Amino Transferase < 10 U/L (15-37); Bilirubin,Total 0.5 mg/dL (0.00-1.00); Blood Urea Nitrogen 24 mg/dL (7-18); Calcium 9.5 mg/dL (8.5-10.1); Carbon Dioxide 24 mmol/L (21-32); Chloride 103 mmol/L (98-108); Cholesterol 165 mg/dL (0-200); Estimated Glomerular Filt Rate > 60; Glucose 192 mg/dL (70-99); HDL Direct 42 mg/dL (40-60); LDL Cholesterol Calculated 93 mg/dL (<130); Osmolality Calculated 297 mOsm/kg (285-295); Potassium 4.4 mmol/L (3.5-5.1); Sodium 139 mmol/L (136-145); Total Protein 7.8 g/dL (6.4-8.2); Triglycerides 152 mg/dL (0-150)
== END 2022-12-08 07:48 | disposition home or self-care (01) ==
LOC: CHSLAB 07:48
PROVIDERS: PCP Family Medicine; Visit Provider Physician Assistant
DX: E11.65 Type 2 diabetes mellitus with hyperglycemia (principal); E78.2 Mixed hyperlipidemia
CPT/HCPCS: 36415; 80053; 80061; 82043; 83036

== ENCOUNTER 2023-04-12 10:21 | Outpatient (CLI) | payer MEDICARE, MEDICAID, SELFPAY ==
[2023-04-12 10:57] LABS: Hemoglobin A1C 8.1 % (<5.7)
== END 2023-04-12 10:22 | disposition home or self-care (01) ==
LOC: CHSLAB 10:26
PROVIDERS: PCP Family Medicine; Visit Provider Physician Assistant
DX: E11.65 Type 2 diabetes mellitus with hyperglycemia (principal)
CPT/HCPCS: 36415; 83036